=== PATIENT | female | born 1975 | race Two or more races ===

== ENCOUNTER 2020-11-09 09:49 | Day surgery (SDC) | payer OTHER | END 2020-11-09 17:10 | disposition home or self-care (01) | LOC: AMB-ENDOS 09:49 | PROVIDERS: ATTEND Colon & Rectal Surgery | DX: D12.2 Benign neoplasm of ascending colon (principal); K64.2 Third degree hemorrhoids; Z20.822 Contact with and (suspected) exposure to COVID-19 ==

== ENCOUNTER 2020-12-12 10:30 | Inpatient (IN) | payer OTHER ==
[~2020-12-12] VITALS: Ht 149.9 cm; Wt 85.3 kg
[~2020-12-12 10:30] MED LIST: AMITRIPTYLINE H10 MG PO; FOLIC ACID0.8 M1 PO; GABAPENTIN600 MG PO; HYDROCHLOROTHIA25 MG PO; MELOXICAM15 MG PO; METHOTREXATE2.5 MG PO; PLAQUENIL PO; SULFAZINE EC500 MG PO; VERELAN180 MG PO
[2020-12-18] MEDS ORDERED: HYDROXYCHLOROQ200 MG (10:44)
== END 2020-12-21 20:24 | disposition home or self-care (01) | DRG 330 ==
LOC: O/R 12-18 07:37 → SURH 12-18 07:37
PROVIDERS: ADMIT Colon & Rectal Surgery; ATTEND Colon & Rectal Surgery
PROC: 0DTP4ZZ Resection of Rectum, Percutaneous Endoscopic Approach (ICD-10-PCS; 2020-12-18)
PROC: 4A12X4Z Monitoring of Cardiac Electrical Activity, External Approach (ICD-10-PCS; 2020-12-18)
PROC: 0DBN4ZZ Excision of Sigmoid Colon, Percutaneous Endoscopic Approach (ICD-10-PCS; principal; 2020-12-18 14:30)
DX: K57.20 Diverticulitis of large intestine with perforation and abscess without bleeding (principal); K92.1 Melena; I11.9 Hypertensive heart disease without heart failure; D50.0 Iron deficiency anemia secondary to blood loss (chronic)

== ENCOUNTER 2021-01-02 18:12 | Emergency (ER) | payer OTHER ==
[~2021-01-02] VITALS: Ht 149.9 cm; Wt 83.0 kg
[~2021-01-02 18:12] MED LIST changes: +HYDROXYCHLOROQ200 MG
[2021-01-02] MEDS ORDERED: INTESTINEX680 M1 PO (18:24)
[2021-01-02] MEDS ORDERED: ETODOLAC600 MG PO (18:26)
[2021-01-03] MEDS ORDERED: PERCOCET 5-3251 EACH PO (11:46)
== END 2021-01-03 13:07 | disposition home or self-care (01) ==
LOC: ER 18:12
DX: K91.871 Postprocedural hematoma of a digestive system organ or structure following other procedure (principal); K68.11 Postprocedural retroperitoneal abscess; G89.18 Other acute postprocedural pain; Z11.52 Encounter for screening for COVID-19